=== PATIENT | female | born 1945 | race Caucasian/White ===

== ENCOUNTER 2021-08-10 06:07 | Day surgery (SDC) | payer OTHER ==
[~2021-08-10] VITALS: Ht 154.9 cm; Wt 93.0 kg
--- NOTE | ~2021-08-10 | O ---
[facility] [place] [address] OPERATIVE REPORT Name: MARYELLEN FUNES Room #: 150-1 [facility]..#: [id number] Admission: 08/10/21 Attend Phys: Abelino Portillo MD Discharge: Date of : 41 Report #: [id number] THIS REPORT FOR: cc: FAM - Family physician unknown FAM - Family physician unknown Abelino Portillo MD ~ cc: Chata Simmons MD, Ale Sellers DO, Leticia Thompson MD DATE OF SERVICE: 08/10/2021 SURGEON: Abelino Portillo MD POLICE COMMUNICATIONS OPERATOR: None. PREOPERATIVE DIAGNOSIS: Bilateral lower lid ectropion. POSTOPERATIVE DIAGNOSIS: Bilateral lower lid ectropion. OPERATION PERFORMED: Bilateral lower lid ectropion repair. ANESTHESIA: Local with IV sedation. COMPLICATIONS: None. INDICATIONS FOR PROCEDURE: This patient has bilateral acquired lower lid ectropion with chronic tearing, keratopathy and discharge. The current procedures are undertaken in order to improve the patient's visual function, lacrimal outflow, and level of comfort. Informed consent was obtained to include but not limit to the risk of loss of vision, bleeding, infection, scarring, failure to improve the problem and need for further surgery. DESCRIPTION OF OPERATION: The patient was taken to the operating room where 2% Xylocaine with epinephrine mixed with equal parts of 0.75% Marcaine with Wydase was administered transcutaneously and transconjunctivally to each lower lid and lateral canthal area. The patient was then prepped and draped in the usual sterile fashion. A Naya clamp was then used to clamp the left lateral canthus following which a sharp canthotomy and cantholysis were performed. The tarsal strip was prepared laterally, removing the lash bearing portion of the redundant lid margin and the redundant tarsal plate. Hemostasis was achieved with a monopolar cautery, as it was throughout the case. The tarsal strip was then secured to the internal portion of the lateral orbital tubercle with two interrupted 5-0 Prolene sutures. The lateral canthal angle was sharply reformed as the subcutaneous structures and the skin were closed with multiple interrupted 6-0 plain gut sutures. Attention was then turned to the right side where the same procedure was [address] [address] OPERATIVE REPORT Name: MARYELLEN FUNES Room #: 150-1 [facility].#: [id number] Admission: 08/10/21 Attend Phys: Abelino Portillo MD Discharge: Date of : 41 Report #: [id number] performed. The wounds were cleaned and dressed with ophthalmic antibiotic ointment. The patient was then transported to the recovery area, having tolerated the procedure well with no anesthetic or operative complications being noted. By: [id number] Abelino Portillo MD /nt
[~2021-08-10 06:07] MED LIST: ACTOS15 MG PO; ALBUTEROL2.5 MG/31 INH; ALLERGY RELIEF180 MG PO; AVENOVA OPHTHALMIC; BETAPACE80 MG PO; LEVO-T75 MCG PO; LIPITOR40 MG PO; LISINOPRIL5 MG PO; LO-DOSE ASPIRIN81 M1 PO; MULTI VITAMIN1 EACH PO; OMEPRAZOLE 20 M20 M1 PO; PROAIR HFA8.5 GM INH; RESTASIS1 EACH OPHTHALMIC; RETAINE MGD EY1 EACH OPHTHALMIC; SERTRALINE HCL100 MG PO; SPIRIVA INH; TOBREX5 ML OPHTHALMIC; TYLENOL 8 HOUR650 MG PO
[2021-08-10 08:00] VITALS: BP 136/67
== END 2021-08-10 09:45 | disposition home or self-care (01) ==
LOC: OR 06:07 → TBA 06:09 → OR 09:45
PROVIDERS: ATTEND Ophthalmology
DX: H02.105 Unspecified ectropion of left lower eyelid (principal); H02.102 Unspecified ectropion of right lower eyelid; I10 Essential (primary) hypertension; E78.5 Hyperlipidemia, unspecified; E11.9 Type 2 diabetes mellitus without complications; F32.9 Major depressive disorder, single episode, unspecified; F41.9 Anxiety disorder, unspecified; J43.9 Emphysema, unspecified; K21.9 Gastro-esophageal reflux disease without esophagitis; Z98.890 Other specified postprocedural states; Z79.899 Other long term (current) drug therapy; Z20.822 Contact with and (suspected) exposure to COVID-19; Z90.710 Acquired absence of both cervix and uterus; Z90.49 Acquired absence of other specified parts of digestive tract; Z87.891 Personal history of nicotine dependence; Z85.3 Personal history of malignant neoplasm of breast; Z91.040 Latex allergy status; Z91.041 Radiographic dye allergy status; Z88.8 Allergy status to other drugs, medicaments and biological substances; Z88.2 Allergy status to sulfonamides
CPT/HCPCS: 50010; 50101; 50386; 50398; 51636; 56527; 56531; 62110; 62850; 70005